=== PATIENT | male | born 1990 | race Caucasian/White ===

== ENCOUNTER 2016-11-25 16:06 | Emergency (ER) | payer MEDICAID ==
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
[2016-11-25 19:00] VITALS: BP 127/76
== END 2016-11-25 18:54 | disposition home or self-care (01) ==
LOC: ER 16:06
DX: M54.5 Low back pain (principal); M54.9 Dorsalgia, unspecified; M54.6 Pain in thoracic spine; X58.XXXA Exposure to other specified factors, initial encounter; Y93.61 Activity, american tackle football; F17.210 Nicotine dependence, cigarettes, uncomplicated
CPT/HCPCS: 99283

== ENCOUNTER 2017-01-20 23:19 | Emergency (ER) | payer MEDICAID ==
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
[2017-01-21] MEDS ORDERED: OXYCODONE-ACETAMINOPHEN 5-325 MG TABLET PO ONE (01:43)
[2017-01-21 03:06] VITALS: BP 107/66
== END 2017-01-21 03:05 | disposition home or self-care (01) ==
LOC: ER 23:19
DX: R07.89 Other chest pain (principal); W17.89XA Other fall from one level to another, initial encounter; Y99.0 Civilian activity done for income or pay; R03.0 Elevated blood-pressure reading, without diagnosis of hypertension; F17.210 Nicotine dependence, cigarettes, uncomplicated; Z82.49 Family history of ischemic heart disease and other diseases of the circulatory system; Z86.14 Personal history of Methicillin resistant Staphylococcus aureus infection
CPT/HCPCS: 71020; 71250; 99284

== ENCOUNTER → 2017-02-28 | Outpatient (CLI) | payer MEDICAID | LOC: RAD 18:51 | PROVIDERS: ATTEND Podiatrist Foot & Ankle Surgery | DX: M84.371A Stress fracture, right ankle, initial encounter for fracture (principal) ==

== ENCOUNTER → 2017-03-09 | Outpatient (CLI) | payer MEDICAID | LOC: RAD 16:42 | PROVIDERS: ATTEND Podiatrist Foot & Ankle Surgery | DX: S93.411A Sprain of calcaneofibular ligament of right ankle, initial encounter (principal); S93.431A Sprain of tibiofibular ligament of right ankle, initial encounter; S93.491A Sprain of other ligament of right ankle, initial encounter; X58.XXXA Exposure to other specified factors, initial encounter ==

== ENCOUNTER 2017-04-17 15:10 | Emergency (ER) | payer MEDICAID, OTHER ==
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
[2017-04-17 16:44] VITALS: BP 145/65
== END 2017-04-17 16:36 | disposition home or self-care (01) ==
LOC: ER 15:10
DX: S16.1XXA Strain of muscle, fascia and tendon at neck level, initial encounter (principal); M54.9 Dorsalgia, unspecified; M54.2 Cervicalgia; V87.7XXA Person injured in collision between other specified motor vehicles (traffic), initial encounter; F17.200 Nicotine dependence, unspecified, uncomplicated
CPT/HCPCS: 99283

== ENCOUNTER 2017-05-17 11:51 | Emergency (ER) | payer MEDICAID ==
[2017-05-17] MEDS ORDERED: OXYCODONE-ACETAMINOPHEN 5-325 MG TABLET PO ONE (12:26)
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
[2017-05-17 14:30] VITALS: BP 107/65
== END 2017-05-17 14:30 | disposition home or self-care (01) ==
LOC: ER 11:51
DX: S16.1XXA Strain of muscle, fascia and tendon at neck level, initial encounter (principal); M54.9 Dorsalgia, unspecified; F17.200 Nicotine dependence, unspecified, uncomplicated; W01.0XXA Fall on same level from slipping, tripping and stumbling without subsequent striking against object, initial encounter; Z86.14 Personal history of Methicillin resistant Staphylococcus aureus infection
CPT/HCPCS: 72070; 72110; 72125; 99284

== ENCOUNTER 2017-05-23 11:14 | Emergency (ER) | payer MEDICAID ==
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
[2017-05-23] MEDS ORDERED: LIDOCAINE 5% (700 MG) TRANSDERMAL ADH..PATCH TP ONE (12:31)
[2017-05-23] MEDS ORDERED: KETOROLAC TROMETHAMINE INJ/PF 30 MG/1 ML SDV IM ONE (12:36)
[2017-05-23 13:55] VITALS: BP 139/56
== END 2017-05-23 13:40 | disposition home or self-care (01) ==
LOC: ER 11:14
DX: G89.29 Other chronic pain (principal); M54.5 Low back pain; Z86.14 Personal history of Methicillin resistant Staphylococcus aureus infection
CPT/HCPCS: 99283; 96372; J1885; J3490

== ENCOUNTER 2017-06-10 00:10 | Emergency (ER) | payer OTHER, MEDICAID ==
[2017-06-10] MEDS ORDERED: KETOROLAC TROMETHAMINE INJ/PF 30 MG/1 ML SDV IM ONE (01:10)
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
[2017-06-10 02:45] VITALS: BP 115/58
== END 2017-06-10 02:44 | disposition home or self-care (01) ==
LOC: ER 00:10
DX: S16.1XXA Strain of muscle, fascia and tendon at neck level, initial encounter (principal); S29.019A Strain of muscle and tendon of unspecified wall of thorax, initial encounter; M25.561 Pain in right knee; M54.9 Dorsalgia, unspecified; V89.2XXA Person injured in unspecified motor-vehicle accident, traffic, initial encounter; G89.29 Other chronic pain; F17.200 Nicotine dependence, unspecified, uncomplicated; Z86.14 Personal history of Methicillin resistant Staphylococcus aureus infection
CPT/HCPCS: 99284; 96372; 73564; 72125; 72128; L0120; J1885

== ENCOUNTER 2017-11-16 08:59 | Emergency (ER) | payer MEDICAID ==
[2017-11-16 09:07] VITALS: BP 137/74
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
--- NOTE | 2017-11-16 09:36 | RADIOLOGY REPORT (SQ) ---
EXAM DESCRIPTION: KNEE RIGHT 2 VIEWS COMPLETED DATE/TIME: 11/16/2017 9:28 am REASON FOR STUDY: right knee pain from fall COMPARISON: 06/10/2017. NUMBER OF VIEWS: Two views. TECHNIQUE: AP and lateral radiographic images acquired of the right knee. LIMITATIONS: None. FINDINGS: MINERALIZATION: Normal. BONES: No acute fracture or dislocation. Surgical changes. No worrisome bone lesions. JOINT: No effusion. SOFT TISSUES: No soft tissue swelling. No radio-opaque foreign body. OTHER: No other significant finding. IMPRESSION: SURGICAL CHANGES. NO RADIOGRAPHIC EVIDENCE OF ACUTE INJURY. TECHNICAL DOCUMENTATION: JOB ID: [id number] [employer]- All Rights Reserved
[2017-11-16] MEDS ORDERED: KETOROLAC TROMETHAMINE INJ/PF 30 MG/1 ML SDV IM ONE (09:47)
== END 2017-11-16 10:05 | disposition home or self-care (01) ==
LOC: ER 08:59
DX: M25.561 Pain in right knee (principal); X50.9XXA Other and unspecified overexertion or strenuous movements or postures, initial encounter; Z98.890 Other specified postprocedural states; Z86.14 Personal history of Methicillin resistant Staphylococcus aureus infection
CPT/HCPCS: 99283; 96372; 73560; L1830; J1885

== ENCOUNTER → 2017-11-28 | Outpatient (CLI) | payer MEDICAID ==
--- NOTE | 2017-11-28 16:43 | RADIOLOGY REPORT (SQ) ---
EXAM DESCRIPTION: MRI RT LOWER JOINT WITHOUT COMPLETED DATE/TIME: 11/28/2017 3:25 pm REASON FOR STUDY: RIGHT KNEE PAIN M25.561 PAIN IN RIGHT KNEE COMPARISON: 09/25/2013 TECHNIQUE: Rightknee images acquired and stored on PACS. Multiplanar images include fat sensitive s equences as T1, water sensitive sequences as FST2 or STIR, cartilage sensitive sequences as FSPD, and gradient echo sequences. LIMITATIONS: None. FINDINGS: JOINT AND BURSAE: Small joint effusion. BONE CORTEX AND MARROW: No alteration of signal to suggest marrow replacement. No worrisome bone lesi ons. No occult fracture. ACL: Intact. No degeneration or ganglion cyst. PCL: There has been no PCL repair. Screws seen on the prior MRI on no longer present in the tibia or femoral anchors. There appear to be intact PCL fibers along the graft despite the loss of screws. MCL: Intact. No periligamentous edema or fluid. LCL: Intact. No periligamentous edema or fluid. MEDIAL MENISCUS: Flap tear mid meniscus. No subluxation. LATERAL MENISCUS: No tears. No abnormal signal. MEDIAL COMPARTMENT: Cartilage preserved. No bone bruises or reactive marrow edema. No osteophytes. LATERAL COMPARTMENT: Cartilage preserved. No bone bruises or reactive marrow edema. No osteophytes. PATELLA: No chondromalacia. No subchondral cysts. Medial and lateral retinacula intact. EXTENSOR MECHANISM: Intact. Quadriceps and patella tendons normal. SOFT TISSUES: Adjacent muscles and subcutaneous tissues normal. Normal flow void in popliteal artery and vein. OTHER: No other significant finding. IMPRESSION: Interval removal along PCL anchor screws. PCL repair largely intact. Interval development of a flap tear of the medial meniscus. TECHNICAL DOCUMENTATION: JOB ID: [id number] [email or web address]- All Rights Reserved
== END ==
LOC: RAD 14:17
PROVIDERS: ATTEND Orthopaedic Surgery
DX: M25.561 Pain in right knee (principal)

== ENCOUNTER → 2018-02-16 | Outpatient (CLI) | payer MEDICAID ==
--- NOTE | 2018-02-16 16:04 | RADIOLOGY REPORT (SQ) ---
EXAM DESCRIPTION: CT RT LOWER EXTREMITY WITHOUT COMPLETED DATE/TIME: 02/16/2018 2:57 pm REASON FOR STUDY: PRIMARY OA (M19.079) M19.071 PRIMARY OSTEOARTHRITIS, RIGHT ANKLE AND FOOT COMPARISON: Left foot films 11/24/2009 Right foot films 09/08/2014, 11/23/2014, 07/11/2016 Right ankle films 10/30/2015, 02/28/2017 MRI right ankle 03/09/2017 focal TECHNIQUE: Axial imaging performed through the right ankle and foot with reformatted coronal and sag ittal imaging windowed for bone and soft tissues. Images saved to PACS. 3D IMAGING: Were 3D images as MIP, SSD, or volume rendering performed at the work station? Yes All CT scanners at this facility use dose modulation, iterative reconstruction, and/or weight based d osing when appropriate to reduce radiation dose to as low as reasonably achievable (ALARA). [facility]: Dose Right [facility]: CareDose [facility]: Dose Right [facility]: Teradose 4D [facility]: [employer] LIMITATIONS: None. RADIATION DOSE: CT Rad equipment meets quality standard of care and radiation dose reduction techniq ues were employed. CTDIvol: 4.1 mGy. DLP: 114 mGy-cm. mGy. FINDINGS: There is trabecular bony remodeling in the calcaneus, suggestive of an old healed calcanea l fracture. Moderate-sized plantar calcaneal spur. The posterior subtalar joint is narrowed with bony sclerosis and osteophyte formation laterally, best shown on coronal reconstruction images 67-71, and sagittal reconstruction images 24 through 32. Sma ll os trigonum along the posterior subtalar joint. Intertarsal joints, tarsometatarsal, metatarsophalangeal and interphalangeal joints are all unremarka ble. There is a incompletely united 2nd metatarsal distal metaphysis fracture, possibly a stress fracture best shown on axial image 87 and sagittal reconstruction image 34. Remainder of the bones of the anaid t are otherwise unremarkable. Plantar fascia, Achilles tendon grossly intact. Ligaments grossly intact by CT. IMPRESSION: Incompletely united 2nd metatarsal distal metaphysis fracture, worrisome for stress frac ture Bony remodeling of the calcaneus from remote prior calcaneal fracture. Posterior facet of the subtalar joint demonstrates narrowing and bony spurring laterally more so than medially from osteoarthritis TECHNICAL DOCUMENTATION: JOB ID: [id number] Quality ID # [id number]: Final reports with documentation of one or more dose reduction techniques (e.g., Au tomated exposure control, adjustment of the mA and/or kV according to patient size, use of iterative reconstruction technique) 2010 [employer]- All Rights Reserved Reading location - IP/workstation name: [email or web address]
== END ==
LOC: RAD 14:10
PROVIDERS: ATTEND Orthopaedic Surgery
DX: M19.071 Primary osteoarthritis, right ankle and foot (principal)

== ENCOUNTER 2018-02-22 05:28 | Day surgery (SDC) | payer MEDICAID ==
[2018-02-16 10:06] LABS: ABSOLUTE EOSINOPHILS # (AUTO) 0.1 10^3/uL (0.0-0.6); ABSOLUTE LYMPHOCYTES (AUTO) 2.1 10^3/uL (0.5-4.7); ABSOLUTE MONOCYTES (AUTO) 0.8 10^3/uL (0.1-1.4); ABSOLUTE NEUT (AUTO) 7.4 10^3/uL (1.7-8.2); BASOPHILS % (AUTO) 0.4 % (0-2); HEMATOCRIT 45.8 % (37.9-51.0); HEMOGLOBIN 15.5 g/dL (13.5-17.0); LYMPHOCYTES % (AUTO) 20.1 % (13-45); MEAN CORPUSCULAR HEMOGLOBIN 28.7 pg (27.0-33.4); MEAN CORPUSCULAR HGB CONC 33.9 g/dL (32.0-36.0); MEAN CORPUSCULAR VOLUME 85 fl (80-97); MONOCYTES % (AUTO) 7.4 % (3-13); PLATELET COUNT 259 10^3/uL (150-450); RED BLOOD COUNT 5.41 10^6/uL (4.35-5.55); RED CELL DISTRIBUTION WIDTH 14.3 % (11.5-14.0); SEGMENTED NEUTROPHILS % (AUTO) 71.1 % (42-78); TOTAL CELLS COUNTED % (AUTO) 100 %; WHITE BLOOD COUNT 10.4 10^3/uL (4.0-10.5)
[2018-02-16 10:12] LABS: APPEARANCE,URINE CLEAR; COLOR,URINE YELLOW; GLUCOSE, URINE NEGATIVE (NEGATIVE)
[2018-02-16 10:13] LABS: BILIRUBIN,URINE NEGATIVE (NEGATIVE); KETONES,URINE NEGATIVE (NEGATIVE); LEUKOCYTE ESTERASE,URINE NEGATIVE (NEGATIVE); NITRITE,URINE NEGATIVE (NEGATIVE); PROTEIN,URINE NEGATIVE (NEGATIVE); URINE SPECIFIC GRAVITY 1.022
[2018-02-16 10:34] LABS: ANION GAP 12 (5-19); BLOOD UREA NITROGEN 13 mg/dL (7-20); CALCIUM 10.2 mg/dL (8.4-10.2); CARBON DIOXIDE 30 mmol/L (22-30); CHLORIDE 103 mmol/L (98-107); GLUCOSE 91 mg/dL (75-110); POTASSIUM 4.5 mmol/L (3.6-5.0); SODIUM 144.8 mmol/L (137-145)
--- NOTE | 2018-02-16 13:07 | EKG REPORT ---
SEVERITY:- NORMAL ECG - SINUS RHYTHM : Confirmed by: Jacobo Sanders MD 16-Feb-2018 13:07:20
[~2018-02-22 05:28] MED LIST: CEFAZOLIN SODIUM 2 GM in NORMAL SALINE 100 ML IV PRN; LACTATED RINGERS 1000 ML IV PRN; LIDOCAINE 0.5% INJ-PF (5 MG/ML) 50 ML SDV SUBCUT PRN
[2018-02-22] MEDS ORDERED: MIDAZOLAM 2 MG/2 ML INJ ONE (07:13)
[2018-02-22] MEDS ORDERED: PROPOFOL INJ 200 MG/20 ML VIAL IV ONE (07:14)
[2018-02-22] MEDS ORDERED: KETAMINE HCL INJ 500 MG/10 ML VIAL ONE (07:14)
[2018-02-22] MEDS ORDERED: FENTANYL CITRATE INJ/PF 100 MCG/2 ML AMPUL ONE (07:14)
[2018-02-22] MEDS ORDERED: PROMETHAZINE HCL INJ 25 MG/1 ML VIAL IV PRN ×2 (07:54)
[2018-02-22] MEDS ORDERED: FENTANYL CITRATE INJ/PF 100 MCG/2 ML AMPUL IV PRN ×3 (07:54)
[2018-02-22] MEDS ORDERED: DIPHENHYDRAMINE HCL 50 MG/ML VIAL IV PRN (07:54)
[2018-02-22] MEDS ORDERED: MEPERIDINE HCL/PF INJ 25 MG/1 ML DISP.SYRIN IV PRN (07:54)
[2018-02-22] MEDS ORDERED: OXYCODONE-ACETAMINOPHEN 5-325 MG TABLET PO PRN ×2 (07:54)
--- NOTE | 2018-02-22 08:11 | Operative Report ---
Operative Report DATE OF SURGERY: 02/22/18 PREOPERATIVE DIAGNOSIS: Right posttraumatic subtalar arthrosis OPERATION: Right subtalar fusion. Calcaneal ostectomy SURGEON: GIOVANY AYON ANESTHESIA: GA TISSUE REMOVED OR ALTERED: Bone to pathology ESTIMATED BLOOD LOSS: Minimal PROCEDURE: With the patient in a sloppy left lateral decubitus position on the operating table the right lower extremities prepped and draped in sterile fashion. The limb was elevated for exsanguination tourniquet inflated to 350 torr. A curvilinear incision is made over the sinus tarsi extending back to the region of the lateral malleolus. Sharp dissection was carried incision down to the sinus tarsi into the lateral surface of the calcaneus. A large bone fragment is clearly impinging on the peroneal nerves and also impeding access to the subtalar joint. This is removed using an osteotome. Bone is sent for pathology. Next the subtalar joint is developed and a lamina gas pit worker was placed into the subtalar joint to further to exposure. A bur is then used to remove the articular surfaces of the facet. The subtalar space was then packed with Vitoss bone graft substitute. 2 [place] titanium 6 5 screws were then placed from the plantar surface of the calcaneus across the subtalar joint into the talar neck. Position of the hardware is checked fluoroscopically and felt to be adequate. At this point all instrumentation was removed. The tourniquet is deflated and the wound is irrigated with bulb lavage. Hemostasis obtained with electrocautery. Wound is then closed using Vicryl and nylon. A sterile compressive dressing and posterior plaster splint were applied and the patient' s return to the PACU in satisfactory condition.
[2018-02-22] MEDS ORDERED: OXYCODONE HCL IR 5 MG TABLET PO PRN (08:34)
[2018-02-22] MEDS ORDERED: ONDANSETRON 4 MG TAB.RAPDIS SL PRN (08:35)
[2018-02-22] MEDS: FENTANYL CITRATE INJ/PF 100 MCG/2 ML AMPUL ONE ×4 (08:40→09:10)
[2018-02-22] MEDS: MORPHINE SULFATE 10 MG/ML INJ ONE ×2 (08:55→09:10)
[2018-02-22] MEDS ORDERED: OXYCODONE HCL IR 5 MG TABLET ONE (09:21)
[2018-02-22] MEDS ORDERED: DEXAMETHASONE SOD PHOSPHATE INJ 4 MG/1 ML VIAL ONE (10:00)
[2018-02-22] MEDS ORDERED: LIDOCAINE 2% INJ-PF (20 MG/ML) 2 ML AMPUL ONE (10:00)
[2018-02-22] MEDS ORDERED: ONDANSETRON HCL INJ/PF 4 MG/2 ML SDV ONE (10:00)
[2018-02-22] MEDS ORDERED: KETOROLAC TROMETHAMINE 60 MG/2 ML SDV ONE (10:00)
[2018-02-22 11:58] VITALS: BP 123/79
--- NOTE | 2018-02-22 13:31 | RADIOLOGY REPORT (SQ) ---
EXAM DESCRIPTION: NO CHG FLUORO; ANKLE RIGHT AP/LATERAL COMPLETED DATE/TIME: 02/22/2018 8:56 am REASON FOR STUDY: ORIF/SUBTALAR FUSION RT ANKLE ASST WITH FLUORO IN OR COMPARISON: None. FLUOROSCOPY TIME: 0.2 minutes 2 Images saved to PACS LIMITATIONS: None. PROCEDURE: Talocalcaneal fusion FINDINGS: 2 images obtained with fluoro document placement of 2 long cannulated screws through the c alcaneus and into the talus. IMPRESSION: Talocalcaneal fusion. COMMENT: PQRS 6045F: Fluoroscopy time of the procedure is documented in the report. TECHNICAL DOCUMENTATION: JOB ID: [id number] [employer]- All Rights Reserved Reading location - IP/workstation name: [email or web address]
--- NOTE | 2018-02-22 13:31 | RADIOLOGY REPORT (SQ) ---
EXAM DESCRIPTION: NO CHG FLUORO; ANKLE RIGHT AP/LATERAL COMPLETED DATE/TIME: 02/22/2018 8:56 am REASON FOR STUDY: ORIF/SUBTALAR FUSION RT ANKLE ASST WITH FLUORO IN OR COMPARISON: None. FLUOROSCOPY TIME: 0.2 minutes 2 Images saved to PACS LIMITATIONS: None. PROCEDURE: Talocalcaneal fusion FINDINGS: 2 images obtained with fluoro document placement of 2 long cannulated screws through the c alcaneus and into the talus. IMPRESSION: Talocalcaneal fusion. COMMENT: PQRS 6045F: Fluoroscopy time of the procedure is documented in the report. TECHNICAL DOCUMENTATION: JOB ID: [id number] [employer]- All Rights Reserved Reading location - IP/workstation name: [email or web address]
== END 2018-02-22 10:50 | disposition home or self-care (01) ==
LOC: OROUT 05:28
PROVIDERS: ATTEND Orthopaedic Surgery
PROC: 0SGH0ZZ (ICD-10-PCS; 2018-02-22)
PROC: 0QSL04Z Reposition Right Tarsal with Internal Fixation Device, Open Approach (ICD-10-PCS; principal; 2018-02-22 07:30)
DX: M19.171 Post-traumatic osteoarthritis, right ankle and foot (principal); M19.071 Primary osteoarthritis, right ankle and foot; M25.571 Pain in right ankle and joints of right foot; F17.210 Nicotine dependence, cigarettes, uncomplicated
CPT/HCPCS: 93005; 36415; 85025; 80048; 81001; 88305 ×2; 88311; 73600; 93010; 28725; J2250; J0690; J1100; J1885; J3010; J3490 ×3; J2270; J2405; J2704; 01480

== ENCOUNTER 2019-08-02 04:27 | Emergency (ER) | payer SELFPAY ==
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
[2019-08-02] MEDS ORDERED: OXYCODONE-ACETAMINOPHEN 5-325 MG TABLET PO ONE (08:03)
[2019-08-02] MEDS ORDERED: CEPHALEXIN 500 MG CAPSULE PO ONE (08:03)
[2019-08-02 08:48] VITALS: BP 139/75
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
== END 2019-08-02 08:48 | disposition home or self-care (01) ==
LOC: ER 04:27
DX: S61.215A Laceration without foreign body of left ring finger without damage to nail, initial encounter (principal); S60.00XA Contusion of unspecified finger without damage to nail, initial encounter; X58.XXXA Exposure to other specified factors, initial encounter; Y92.003 Bedroom of unspecified non-institutional (private) residence as the place of occurrence of the external cause; Z86.14 Personal history of Methicillin resistant Staphylococcus aureus infection

== ENCOUNTER 2020-03-13 11:45 | Emergency (ER) | payer SELFPAY ==
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
[2020-03-13 13:05] LABS: APPEARANCE,URINE CLEAR; BILIRUBIN,URINE NEGATIVE (NEGATIVE); COLOR,URINE YELLOW; GLUCOSE, URINE NEGATIVE (NEGATIVE); KETONES,URINE NEGATIVE (NEGATIVE); PROTEIN,URINE NEGATIVE (NEGATIVE); URINE SPECIFIC GRAVITY 1.028; UROBILINOGEN,URINE NEGATIVE mg/dL (<2.0)
[2020-03-13 13:06] LABS: ABSOLUTE EOSINOPHILS # (AUTO) 0.1 10^3/uL (0.0-0.6); ABSOLUTE MONOCYTES (AUTO) 0.6 10^3/uL (0.1-1.4); BASOPHILS % (AUTO) 0.3 % (0-2); EOSINOPHILS % (AUTO) 1.1 % (0-6); HEMATOCRIT 42.1 % (37.9-51.0); HEMOGLOBIN 14.6 g/dL (13.5-17.0); LYMPHOCYTES % (AUTO) 34.3 % (13-45); MEAN CORPUSCULAR HEMOGLOBIN 28.9 pg (27.0-33.4); MEAN CORPUSCULAR HGB CONC 34.7 g/dL (32.0-36.0); MEAN CORPUSCULAR VOLUME 83 fl (80-97); MONOCYTES % (AUTO) 7.4 % (3-13); PLATELET COUNT 294 10^3/uL (150-450); RED BLOOD COUNT 5.04 10^6/uL (4.35-5.55); RED CELL DISTRIBUTION WIDTH 14.4 % (11.5-14.0); SEGMENTED NEUTROPHILS % (AUTO) 56.9 % (42-78); TOTAL CELLS COUNTED % (AUTO) 100 %; WHITE BLOOD COUNT 8.8 10^3/uL (4.0-10.5)
--- NOTE | 2020-03-13 13:16 | RADIOLOGY REPORT (SQ) ---
EXAM DESCRIPTION: KNEE LEFT 4 VIEW IMAGES COMPLETED DATE/TIME: 03/13/2020 12:30 pm REASON FOR STUDY: pain and injury to left knee COMPARISON: None. NUMBER OF VIEWS: Four views. TECHNIQUE: AP, lateral, and both oblique radiographic images acquired of the left knee. LIMITATIONS: None. FINDINGS: MINERALIZATION: Normal. BONES: No acute fracture or dislocation. No worrisome bone lesions. JOINT: No effusion. SOFT TISSUES: No soft tissue swelling. No radio-opaque foreign body. OTHER: No other significant finding. IMPRESSION: NO RADIOGRAPHIC EVIDENCE OF ACUTE INJURY. TECHNICAL DOCUMENTATION: JOB ID: [id number] 2010 [employer] All Rights Reserved Reading location - IP/workstation name: [email or web address]
[2020-03-13] MEDS ORDERED: DIPH/PERTUSS(ACELL)/TETANUS VAC/PF 0.5 ML SYR (>=10YO) IM ONE (13:26)
[2020-03-13 13:31] LABS: ALBUMIN 4.3 g/dL (3.5-5.0); ALKALINE PHOSPHATASE 59 U/L (38-126); ANION GAP 6 (5-19); ASPARTATE AMINO TRANSFERASE 31 U/L (17-59); BILIRUBIN,TOTAL 0.4 mg/dL (0.2-1.3); BLOOD UREA NITROGEN 14 mg/dL (7-20); CALCIUM 9.4 mg/dL (8.4-10.2); CARBON DIOXIDE 30 mmol/L (22-30); CHLORIDE 100 mmol/L (98-107); GLUCOSE 95 mg/dL (75-110); POTASSIUM 4.6 mmol/L (3.6-5.0)
[2020-03-13 13:39] LABS: URINE BARBITURATES SCREEN NEGATIVE; URINE COCAINE SCREEN NEGATIVE; URINE MARIJUANA (THC) SCREEN NEGATIVE; URINE METHADONE SCREEN NEGATIVE; URINE PHENCYCLIDINE SCREEN NEGATIVE
[2020-03-13 13:42] LABS: URINE BENZODIAZEPINES SCREEN UNCONFIRMED POSITIVE
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
[2020-03-13] MEDS ORDERED: LIDOCAINE 1% INJ (10 MG/ML) 10 ML MDV INJ ONE (13:49)
[2020-03-13 14:55] VITALS: BP 121/68
== END 2020-03-13 15:26 | disposition home or self-care (01) ==
LOC: ER 11:45
DX: S81.012A Laceration without foreign body, left knee, initial encounter (principal); W20.8XXA Other cause of strike by thrown, projected or falling object, initial encounter; Y93.H9 Activity, other involving exterior property and land maintenance, building and construction; Y92.89 Other specified places as the place of occurrence of the external cause; Z23 Encounter for immunization; F17.210 Nicotine dependence, cigarettes, uncomplicated; Z86.14 Personal history of Methicillin resistant Staphylococcus aureus infection
CPT/HCPCS: 36415; 80053; 80307; 81001; 85025; 90471; 90715; 99283

== ENCOUNTER 2020-04-28 12:05 | Emergency (ER) | payer SELFPAY ==
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
--- NOTE | 2020-04-28 14:07 | RADIOLOGY REPORT (SQ) ---
EXAM DESCRIPTION: ELBOW LEFT OVER 2 VIEWS IMAGES COMPLETED DATE/TIME: 04/28/2020 1:45 pm REASON FOR STUDY: pain injury swelling COMPARISON: None. NUMBER OF VIEWS: Four views. TECHNIQUE: AP, lateral, and both oblique radiographic images acquired of the left elbow. LIMITATIONS: None. FINDINGS: MINERALIZATION: Normal. BONES: No acute fracture or dislocation. No worrisome bone lesions. JOINT: No effusion. SOFT TISSUES: Soft tissue swelling. No foreign body. OTHER: No other significant finding. IMPRESSION: 1. Soft tissue swelling. Correlation suggested 2. No acute osseous findings. TECHNICAL DOCUMENTATION: JOB ID: [id number] 2010 [employer] All Rights Reserved Reading location - IP/workstation name: [email or web address]
[2020-04-28 14:49] VITALS: BP 130/63
== END 2020-04-28 14:42 | disposition home or self-care (01) ==
LOC: ER 12:05
DX: S59.902A Unspecified injury of left elbow, initial encounter (principal); M25.522 Pain in left elbow; M79.89 Other specified soft tissue disorders; X50.0XXA Overexertion from strenuous movement or load, initial encounter; F17.210 Nicotine dependence, cigarettes, uncomplicated
CPT/HCPCS: 99283

== ENCOUNTER 2020-07-24 03:23 | Inpatient (IN) | payer SELFPAY ==
[2020-07-24] MEDS ORDERED: LIDOCAINE 1%/EPINEPHRINE INJ 20 ML VIAL INJ ONE (06:00)
[2020-07-24] MEDS ORDERED: VANCOMYCIN HCL INJ 1000 MG VIAL IV ONE (06:54)
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
[2020-07-24] MEDS ORDERED: HYDROMORPHONE HCL INJ/PF 2 MG/ML AMPULE IV ONE ×2 (07:49→08:50)
[2020-07-24 08:06] LABS: VENOUS BLOOD BASE EXCESS 0.8 mmol/L; VENOUS BLOOD HCO3 27.5 mmol/L (20-32); VENOUS BLOOD PCO2 52.1 mmHg (35-63); VENOUS BLOOD PH 7.34 (7.30-7.42)
[2020-07-24 08:25] LABS: ALBUMIN 4.4 g/dL (3.5-5.0); ALKALINE PHOSPHATASE 81 U/L (38-126); ANION GAP 12 (5-19); ASPARTATE AMINO TRANSFERASE 20 U/L (17-59); BILIRUBIN,DIRECT 0.2 mg/dL (0.0-0.4); BILIRUBIN,TOTAL 0.7 mg/dL (0.2-1.3); BLOOD UREA NITROGEN 12 mg/dL (7-20); CALCIUM 9.5 mg/dL (8.4-10.2); CARBON DIOXIDE 27 mmol/L (22-30); CHLORIDE 97 mmol/L (98-107); GLUCOSE 96 mg/dL (75-110); POTASSIUM 4.5 mmol/L (3.6-5.0)
[2020-07-24 08:26] LABS: ABSOLUTE BASOPHILS # (AUTO) 0.1 10^3/uL (0.0-0.2); ABSOLUTE EOSINOPHILS # (AUTO) 0.1 10^3/uL (0.0-0.6); ABSOLUTE LYMPHOCYTES (AUTO) 2.7 10^3/uL (0.5-4.7); ABSOLUTE MONOCYTES (AUTO) 1.8 10^3/uL (0.1-1.4); ABSOLUTE NEUT (AUTO) 13.8 10^3/uL (1.7-8.2); BASOPHILS % (AUTO) 0.3 % (0-2); EOSINOPHILS % (AUTO) 0.7 % (0-6); HEMATOCRIT 39.1 % (37.9-51.0); HEMOGLOBIN 12.9 g/dL (13.5-17.0); LYMPHOCYTES % (AUTO) 14.6 % (13-45); MEAN CORPUSCULAR VOLUME 79 fl (80-97); MONOCYTES % (AUTO) 9.6 % (3-13); PLATELET COUNT 255 10^3/uL (150-450); RED BLOOD COUNT 4.97 10^6/uL (4.35-5.55); RED CELL DISTRIBUTION WIDTH 16.1 % (11.5-14.0); SEGMENTED NEUTROPHILS % (AUTO) 74.8 % (42-78); TOTAL CELLS COUNTED % (AUTO) 100 %; WHITE BLOOD COUNT 18.5 10^3/uL (4.0-10.5)
[2020-07-24 08:33] LABS: INTERNATIONAL RATION (INR) 0.93; PROTHROMBIN TIME 12.7 SEC (11.4-15.4)
[2020-07-24] MEDS ORDERED: KETOROLAC TROMETHAMINE INJ/PF 30 MG/1 ML SDV IV ONE (08:50)
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
[2020-07-24] MEDS ORDERED: GLUCAGON,HUMAN RECOMB 1 MG INJ SUBCUT PRN (10:26)
[2020-07-24] MEDS ORDERED: DEXTROSE 50%-WATER 25 GM/50 ML DISP.SYRIN IV PRN ×2 (10:26)
[2020-07-24] MEDS ORDERED: DEXTROSE 40% GEL 15 GM TUBE PO PRN ×2 (10:26)
--- NOTE | 2020-07-24 11:45 | RADIOLOGY REPORT (SQ) ---
EXAM DESCRIPTION: U/S EXTREMITY NONVASCULAR LTD IMAGES COMPLETED DATE/TIME: 07/24/2020 11:24 am REASON FOR STUDY: Ultrasound to rule out abscess of the right forearm COMPARISON: None. TECHNIQUE: Dynamic and static grayscale images acquired of the localized site of clinical concern an d recorded on PACS. Additional selected color Doppler and spectral images recorded. SITE OF CONCERN: Right forearm LIMITATIONS: None. FINDINGS: Subcutaneous edema without organized fluid collection or obvious foreign body. IMPRESSION: Cellulitis. No abscess. TECHNICAL DOCUMENTATION: JOB ID: [id number] 2010 [employer]- All Rights Reserved Reading location - IP/workstation name: [email or web address]
[2020-07-24] MEDS ORDERED: ACETAMINOPHEN 325 MG TABLET PO PRN (11:59)
[2020-07-24] MEDS ORDERED: VANCOMYCIN HCL 0 MG in DEXTROSE 5%-WATER 250 ML IV NR (12:00)
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
--- NOTE | 2020-07-24 13:49 | EKG REPORT ---
SEVERITY:- NORMAL ECG - SINUS RHYTHM : Confirmed by: Jacobo Sanders MD 24-Jul-2020 13:49:26
[2020-07-24] MEDS: VANCOMYCIN HCL 1,250 MG in DEXTROSE 5%-WATER 250 ML IV SCH ×2 (15:20→21:16)
[2020-07-24] MEDS: HEPARIN SOD (PORCINE) 5,000 UNIT/ML 1 ML VIAL SUBCUT SCH ×2 (15:21→21:20)
[2020-07-24 16:15] LABS: URINE BARBITURATES SCREEN NEGATIVE; URINE BENZODIAZEPINES SCREEN NEGATIVE; URINE COCAINE SCREEN NEGATIVE; URINE METHADONE SCREEN NEGATIVE; URINE PHENCYCLIDINE SCREEN NEGATIVE
[2020-07-24 16:16] LABS: URINE MARIJUANA (THC) SCREEN NEGATIVE
[2020-07-24] MEDS: NAPROXEN 250 MG TABLET PO SCH (18:46)
[2020-07-25] MEDS: HEPARIN SOD (PORCINE) 5,000 UNIT/ML 1 ML VIAL SUBCUT SCH (05:35)
[2020-07-25] MEDS: VANCOMYCIN HCL 1,250 MG in DEXTROSE 5%-WATER 250 ML IV SCH (05:35)
[2020-07-25 06:24] VITALS: BP 127/87
[2020-07-25] MEDS: NAPROXEN 250 MG TABLET PO SCH (08:33)
[2020-07-25] MEDS ORDERED: KETOROLAC TROMETHAMINE INJ/PF 30 MG/1 ML SDV IV ONE (10:30)
== END 2020-07-25 13:19 | disposition home or self-care (01) | DRG 603 ==
LOC: ER 03:23 → EH 09:17 → 5 13:14
PROVIDERS: ADMIT Internal Medicine; ATTEND Internal Medicine
PROC: 0JJV3ZZ Inspection of Upper Extremity Subcutaneous Tissue and Fascia, Percutaneous Approach (ICD-10-PCS; principal; 2020-07-24)
DX: L03.113 Cellulitis of right upper limb (principal); M19.90 Unspecified osteoarthritis, unspecified site; F17.210 Nicotine dependence, cigarettes, uncomplicated; F12.90 Cannabis use, unspecified, uncomplicated; F11.90 Opioid use, unspecified, uncomplicated; Z86.14 Personal history of Methicillin resistant Staphylococcus aureus infection; Z82.61 Family history of arthritis
CPT/HCPCS: 36415; 76882; 80053; 80307; 82803; 83605; 85025; 85610; 87040; 87070; 87077; 87186; 87205; 93005; 93010; 96365; 96375; 96376; 99285; G0480; J1170; J1885; J3370; J3490; J7060